=== PATIENT | female | born 1985 | race Caucasian/White ===

== ENCOUNTER 2017-10-07 05:12 | Inpatient (IN) | payer OTHER ==
[~2017-10-07] VITALS: Ht 167.6 cm; Wt 90.5 kg
[~2017-10-07 05:12] MED LIST: MTR600X PO
[2017-10-07] MEDS ORDERED: LACTATED RINGER'S 1000ML 1,000 ML IV PRN (06:29)
[2017-10-07] MEDS ORDERED: LACTATED RINGER'S 1000ML 1,000 ML IV SCH ×2 (06:29→17:00)
[2017-10-07] MEDS ORDERED: PENICILLIN G POTASSIUM IV 6 MU in DEXTROSE 5% 250ML 250 ML IV ONE (06:30)
[2017-10-07 06:45] VITALS: Ht 167.6 cm; Wt 90.5 kg
[2017-10-07 07:13] LABS: HEMATOCRIT 33.5 % (37-47); MEAN CELL VOLUME 94.9 fL (80-100); MEAN CORPUSCULAR HEMOGLOBIN 31.2 pg (25-34); MEAN CORPUSCULAR HGB CONC 32.8 g/dl (32-36); MEAN PLATELET VOLUME 10.3 fL (7.4-10.4); PLATELET COUNT 155 K/uL (130-400); RED CELL DISTRIBUTION WIDTH CV 13.4 % (11.5-14.5); RED CELL DISTRIBUTION WIDTH SD 46.2 fL (36.4-46.3); WHITE BLOOD COUNT 10.14 K/uL (4.8-10.8)
[2017-10-07] MEDS ORDERED: PRENTAB26 PO (08:35)
[2017-10-07] MEDS: PENICILLIN G POTASSIUM IV 3 MU in DEXTROSE 5% 100ML 100 ML IV PRN ×2 (11:14→15:15)
[2017-10-07] MEDS ORDERED: BUPIVACAINE 0.25% 30 ML VIAL ONE (12:01)
[2017-10-07] MEDS ORDERED: FENTANYL 2MCG/ML ROPIV 1.25MG/ML 100ML BAG EPI ONE (12:01)
[2017-10-07] MEDS ORDERED: EpHEDrine SULFATE INJ 50 MG/ML AMP ONE (12:01)
[2017-10-07] MEDS ORDERED: FENTANYL CITRATE INJ 50 MCG/1 ML 2 ML VIAL ONE (12:03)
[2017-10-07] MEDS ORDERED: EpHEDrine SULFATE INJ 50 MG/ML AMP IV PRN (12:45)
[2017-10-07] MEDS ORDERED: NALOXONE HCL INJ 0.4 MG/1 ML VIAL/CARP IV PRN (12:45)
[2017-10-07] MEDS ORDERED: NALOXONE HCL INJ 1 MG in SODIUM CHLORIDE 0.9% 1000ML 1,000 ML IV PRN (12:45)
[2017-10-07] MEDS ORDERED: LACTATED RINGER'S 1000ML 500 ML IV PRN (12:45)
[2017-10-07] MEDS ORDERED: DiphenhydrAMINE HCL 50 MG/ML VIAL IV PRN (12:45)
[2017-10-07] MEDS ORDERED: NALBUPHINE HCL INJ 10 MG/ML 1ML AMP IV PRN (12:45)
[2017-10-07] MEDS ORDERED: FENTANYL 2MCG/ML ROPIV 1.25MG/ML 100ML BAG EPI PRN (12:45)
[2017-10-07] MEDS ORDERED: ONDANSETRON INJ 2 MG/ML 2 ML VIAL IV PRN (12:45)
[2017-10-07] MEDS ORDERED: OXYTOCIN 30 UNITS/500ML NSS IV ONE (15:54)
--- NOTE | 2017-10-07 16:40 | Anesthesia Procedure Note ---
Anesthesia Epidural Removal Nt Date & Time Oct 07, 2017 at 16:39 Vital Signs Pain Intensity: 0.0 Notes Mental Status: alert / awake / arousable, participated in evaluation Nausea / Vomiting: adequately controlled Pain: adequately controlled Airway Patency, RR, SpO2: stable & adequate BP & HR: stable & adequate Hydration State: stable & adequate Neuraxial Anesthesia: was administered Anesthetic Complications: no major complications apparent, pt satisfied with anesthetic care Epidural: removed without complications, with tip intact
[2017-10-07] MEDS ORDERED: OXYTOCIN 30 UNITS/500ML NSS IV PRN (16:45)
[2017-10-07] MEDS ORDERED: OXYCODONE/ACETAMINOPHEN 5-325 TAB PO PRN (16:45)
[2017-10-07] MEDS ORDERED: HYDROCORTISONE ACETATE 25 MG SUPP PR PRN (16:45)
[2017-10-07] MEDS ORDERED: ACETAMINOPHEN 325 MG TAB PO PRN (16:45)
[2017-10-07] MEDS ORDERED: SUPERCREAM 0.870 % 15GM JAR EXT PRN (16:45)
[2017-10-07] MEDS ORDERED: DIPHTHERIA/TETANUS/PERTUSSIS 0.5 ML SYR/VIAL IM. ONE (16:45)
[2017-10-07] MEDS ORDERED: MEASLES, MUMPS & RUBELLA VIRUS VIAL SQ. ONE (16:45)
[2017-10-07] MEDS ORDERED: LANOLIN OINT EXT PRN (16:45)
[2017-10-07] MEDS: IBUPROFEN 600 MG TAB PO PRN (19:20)
[2017-10-07] MEDS: BENZOCAINE 20% AER SPR 82.5 GM CAN EXT PRN (19:20)
[2017-10-07 19:50] VITALS: BP_SYST 108; BP_SYST 119; BP_DIAS 67; BP_DIAS 74; PULSE 66; PULSE 76; TEMP 36.6; TEMP 36.8; O2SAT 97
--- NOTE | 2017-10-07 20:13 | DELIVERY SUMMARY ---
DATE OF OPERATION: 10/07/2017 TIME OF DELIVERY OF BABY: 16:06 p.m. TIME OF DELIVERY OF PLACENTA: 16:26 p.m. DETAILS OF DELIVERY: The patient was presented to L&D on the morning on 10/07 with contractions and admitted for labor. 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 AROM was done at 1146 am with clear fluid. She was found to be fully dilated and desired to push. She pushed through 3 contractions and delivered the head without difficulty. After the delivery of the head, turtle sign was noted. The anterior, right, shoulder was found to be stuck behind the pubic bone. The nursing tea was noted. The bed of the patient was lowered all the way down. Her legs were hyperflexed with McRobert's maneuver and suprapubic pressure was applied by her nurse. With those maneuvers, the shoulders were delivered with minimal traction. There was a 40 second time from the delivery of the head till whole body. Baby was handed of to the mother, mouth and nose were suctioned. Cord was clamped x2 and cut. Baby was handed off the nursery team. The cord blood was obtained. It was a 3-vessel cord. Then the Vagina and perineum were checked for lacerations. There was a perineal partial third degree laceration which was confirmed with rectal exam. A partial sphincter tone was noted. External fibers of external anal sphincter was involved. With the Allis clamps, the external fibers of the sphincter muscles were grasped , brought to the midline. Three [id number]-[id number] stitches with 2/0 Vicryl were placed to repair the sphincter with end-to-end fashion x3. Rectal exam was repeated and good sphincter tone was noted. No sutures were felt, gloves were changed. With another 2/0 Vicryl vaginal mucosa and perineal body muscles and bulbocavernosus muscles were brought together with a 2-0 Vicryl in a running fashion, skin in a subcuticular fashion. Rectal exam was repeated. No sutures felt and excellent sphincter tone was noted. Gloves were changed. Rest of the vagina and perineum were checked and they were found to be intact. Placenta was found to be in the vagina, delivered spontaneously intact and complete. The uterus was explored and found to be empty. The lower segment was cleared off all clots and debris. Fundus was firm. EBL was 200. Mom and baby tolerated the procedure well. Sponge, needle and instrument counts were correct x2. Baby was a viable female . Apgars 8/9, weight was 4010 gr. She received 3 doses of IV penicillin during labor. No complications happened and I was present during whole procedure. I attest to the content of the Intraoperative Record and any orders documented therein. Any exceptions are noted below. MTDD
[2017-10-07] MEDS: DOCUSATE SODIUM 100 MG CAP PO SCH (21:15)
[2017-10-07] MEDS: MAGNESIUM HYDROXIDE SUSP 30 ML UDC PO SCH (22:00)
[2017-10-07 23:31] VITALS: BP 107/70; PULSE 62; TEMP 36.7
[2017-10-08] MEDS: IBUPROFEN 600 MG TAB PO PRN ×3 (01:52→23:49)
[2017-10-08 04:05] VITALS: BP 108/73; PULSE 57; TEMP 36.4
[2017-10-08 07:29] LABS: HEMATOCRIT 33.9 % (37-47); HEMOGLOBIN 11.3 g/dL (12.0-16.0)
[2017-10-08 07:55] VITALS: BP 110/75; PULSE 66; TEMP 36.8; O2SAT 98
[2017-10-08] MEDS: FERROUS SULFATE 325 MG TAB PO SCH (08:00)
[2017-10-08] MEDS: PRENATAL VITAMIN TAB PO SCH (08:00)
[2017-10-08] MEDS: DOCUSATE SODIUM 100 MG CAP PO SCH ×2 (08:49→19:20)
--- NOTE | 2017-10-08 10:29 | OB/GYN Progress Note ---
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 Subjective conversation w/ patient, physical exam Ambulation: ambulating normally Voiding: no voiding problems Passing Gas: Yes Diet Tolerance: Regular Diet Lochia: Moderate Feeding Type: Breast Feeding Review of Systems Constitutional: No fever, No chills, No sweats, No weight loss, No weakness, No fatigue, No problem reported Respiratory: No cough, No sputum, No wheezing, No shortness of breath, No dyspnea on exertion, No dyspnea at rest, No hemoptysis, No problem reported Cardiac: No chest pain, No orthopnea, No PND, No edema, No claudication, No palpitations, No problem reported Breast: No see HPI, No breast lump, No change in shape, No nipple discharge, No breast pain, No problem reported Abdomen: No pain, No nausea, No vomiting, No diarrhea, No constipation, No GI bleeding, No problem reported Female : No see HPI, No dysuria, No urinary frequency, No hematuria, No incontinence, No abnormal vaginal bleeding, No vaginal discharge, No problem reported Objective Vital Signs Date Time Temp Pulse Resp B/P (MAP) Pulse Ox O2 Delivery O2 Flow Rate FiO2 10/08/17 07:55 36.8 66 18 110/75 (87) 98 Room Air 10/08/17 07:55 98 Room Air 10/08/17 04:05 36.4 57 18 108/73 (85) Room Air 10/07/17 23:33 Room Air 10/07/17 23:31 36.7 62 18 107/70 (82) Room Air 10/07/17 19:50 36.6 66 18 108/67 10/07/17 19:50 36.8 76 18 119/74 (89) 97 Room Air 10/07/17 19:50 Room Air Physical Exam General Appearance: WELL-APPEARING, WD/WN, NO APPARENT DISTRESS Respiratory/Chest: chest non-tender, lungs clear, normal breath sounds Cardiovascular: regular rate, rhythm, no edema, no gallop Abdomen: normal bowel sounds, non tender, soft Fundus: Firm Extremities: normal range of motion, non-tender, normal inspection Laboratory Results Last 24 Hours Test 10/08/17 06:55 Hemoglobin 11.3 g/dL Hematocrit 33.9 % Assessment and Plan Day Number: 1 Continue Routine Care: VD day #1 pt doing well no complaints anticipate disch tomorrow
[2017-10-08 11:40] VITALS: BP 103/68; PULSE 64; TEMP 36.3; O2SAT 99
[2017-10-08 16:30] VITALS: BP 111/73; PULSE 68; TEMP 36.5; O2SAT 98
--- NOTE | 2017-10-08 18:20 | NUR ---
Entered room at 1745 to discuss offer assistance with breast feeding and introduce self to parents. This mom states she breast fed successfully in the past and this is not her first child, however she notices her girl is "nipple sucking" and will call for the next feed for assistance with latch. Mother described some sore nipples and stated using lanolin. Offered the suggestion of saline compresses, dry, then apply lanolin for nipple soreness intervention. Mother verbalized understanding. Miranda Hooper RN, CLC
[2017-10-08] MEDS: MAGNESIUM HYDROXIDE SUSP 30 ML UDC PO SCH (19:22)
[2017-10-08 19:50] VITALS: BP 109/70; PULSE 69; TEMP 36.4; O2SAT 98
[2017-10-08] MEDS ORDERED: BISACODYL 5 MG TABEC PO SCH (20:00)
[2017-10-08] MEDS: BENZOCAINE 20% AER SPR 82.5 GM CAN EXT PRN (23:49)
[2017-10-09 00:30] VITALS: BP 111/70; PULSE 66; TEMP 36.7
--- NOTE | 2017-10-09 06:51 | OB/GYN Progress Note ---
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 Subjective conversation w/ patient, physical exam Ambulation: ambulating normally Voiding: no voiding problems Passing Gas: Yes Diet Tolerance: Regular Diet Lochia: Moderate Feeding Type: Breast Feeding Review of Systems Constitutional: No fever, No chills, No sweats, No weight loss, No weakness, No fatigue, No problem reported Respiratory: No cough, No sputum, No wheezing, No shortness of breath, No dyspnea on exertion, No dyspnea at rest, No hemoptysis, No problem reported Cardiac: No chest pain, No orthopnea, No PND, No edema, No claudication, No palpitations, No problem reported Breast: No see HPI, No breast lump, No change in shape, No nipple discharge, No breast pain, No problem reported Abdomen: No pain, No nausea, No vomiting, No diarrhea, No constipation, No GI bleeding, No problem reported Female : No see HPI, No dysuria, No urinary frequency, No hematuria, No incontinence, No abnormal vaginal bleeding, No vaginal discharge, No problem reported Objective Vital Signs Date Time Temp Pulse Resp B/P (MAP) Pulse Ox O2 Delivery O2 Flow Rate FiO2 10/09/17 00:30 36.7 66 18 111/70 (84) Room Air 10/09/17 00:30 Room Air 10/08/17 19:50 36.4 69 16 109/70 (83) 98 Room Air 10/08/17 16:30 36.5 68 18 111/73 (86) 98 Room Air 10/08/17 16:30 98 Room Air 10/08/17 11:40 36.3 64 18 103/68 (80) 99 Room Air 10/08/17 07:55 36.8 66 18 110/75 (87) 98 Room Air 10/08/17 07:55 98 Room Air Physical Exam General Appearance: WELL-APPEARING, WD/WN, NO APPARENT DISTRESS Respiratory/Chest: chest non-tender, lungs clear, normal breath sounds Cardiovascular: regular rate, rhythm, no edema, no gallop Abdomen: normal bowel sounds, non tender, soft Fundus: Firm Extremities: normal range of motion, non-tender, normal inspection Laboratory Results Last 24 Hours Test 10/08/17 06:55 10/09/17 04:44 Hemoglobin 11.3 g/dL Hematocrit 33.9 % Assessment and Plan Day Number: 1 Continue Routine Care: PPD #2 pt doing well disch home with instructions
[2017-10-09] MEDS ORDERED: MTR600X PO (06:53)
[2017-10-09] MEDS ORDERED: FRRS300 PO (06:53)
--- NOTE | 2017-10-09 06:54 | Discharge Instructions ---
Discharge Instructions Date of Service Oct 09, 2017. Admission Reason for Admission: Active Labor At Term Discharge Discharge Diagnosis / Problem: Discharge Goals Goal(s): Routine recovery after delivery Activity Recommendations Activity Limitations: as noted below ACTIVITY RECOMMENDATIONS: * Gradual return to full activity over the next 2-3 weeks. * No lifting - nothing heavier than baby over the next 2-3 weeks. * Do not engage in vigorous exercise, sexual activity or sports until cleared by your physician. * Do not drive or operate any motorized equipment until cleared by your physician. * You may shower/bathe daily. BREAST CARE: If you are not breast feeding: * Wear a supportive bra 24 hours a day for one to two weeks. * Avoid stimulating your breasts and nipples as much as possible during the first few weeks after delivery. * When taking a shower, have the warm water hit your back, not breasts. * When your breasts feel full, apply ice packs. Usually three to four times a day helps ease the discomfort. * Take a mild pain medication (Tylenol/Motrin) when you are uncomfortable. If breast feeding: * Use breast milk to lubricate nipples. Lansinoh cream may be used for sore nipples. You do not need to remove cream prior to breast feeding. If using a different brand of cream, check the label for directions regarding removal of cream prior to nursing. * Wear a supportive bra. * If having problems with breasts or breast feeding, call a ruby on rails consultant or your health care provider. EPISIOTOMY CARE: After delivery, if you have an episiotomy (stitches), the following steps will ease discomfort and aid healing. * For the first 24 hours after delivery, place ice packs next to your episiotomy to help reduce swelling. * After the first 24 hour-period, sitz baths, either portable or in the tub, are suggested. A shower with a shower arm sprayed over the episiotomy may be comforting. * Kaya care should be done after each voiding and bowel movement. Squirt warm water from a plastic bottle over the perineum (region of the body between the anus and urinary opening) and pat dry. * Use Dermoplast to ease discomfort. Shake container. [place] directly over the episiotomy. * Place a Tucks on a clean sanitary pad next to your episiotomy. OVER THE COUNTER MEDICATION: * For discomfort or pain, you may use Acetaminophen (Tylenol), Ibuprofen (Advil ), or Naproxen (Aleve) following the package directions. * For constipation you may use Colace following the package directions. SPECIAL CARE INSTRUCTIONS: When you are discharged from the hospital, it is important for you to follow the instructions listed below: * During the first week at home, you should be able to care for yourself and your baby. In addition, the usual light household activities are encouraged. * Limit your activities to the way you feel. Do not try to clean the house or move furniture. Be sensible. * If you actively engage in sports and have done so up until the time of your delivery, you may resume these activities as soon as you feel able. This may take up to one month or even longer. Use good judgment. * Continue to take your vitamins for at least six weeks after the of your baby. * Your diet need not be limited unless you were on a special diet before your delivery. Breast-feeding mothers need around 2500 calories per day and at least 64-80 ounces of fluid per day (8 to 10 glasses). * You should eat foods from the four major food groups. Crash diets or fad diets are to be avoided. Eating lean meats, fresh fruits and vegetables, low-fat dairy products, high fiber foods and a regular exercise program, will help you get back to your pre- weight without putting your health at risk. * Constipation is sometimes a problem after delivery. Take a mild laxative as needed. If breast feeding, Milk of Magnesia is acceptable to use. You may use a suppository or Fleets enema if no episiotomy. * A daily shower or tub bath is suggested. Be sure to thoroughly and gently dry the perineum. * A bloody vaginal discharge will usually continue until around four weeks post . A small amount of bleeding may continue for as long as six weeks. Vaginal discharge changes from the bright red bleeding after delivery to pink then brownish and finally yellowish-pink before becoming white and disappearing. * Bleeding may increase with activity. Your first period may come in 4-8 weeks. If you are breast feeding, your period may be delayed even longer. * Jet (sex) can begin whenever both you and your partner feel comfortable and do not have any form of genital infection. It is recommended that you wait until after your return appointment and discuss with your physician. If you have questions, please talk to your health care practitioner. A condom should be used to prevent infection and . * Foreplay, gentle intercourse and lubrication is very important the first several times to prevent pain. A water-based lubricant such as K-Y jelly or Astroglide may be used. * Tampons may be used six weeks after delivery. * Douching should be avoided for 6 weeks after delivery. * If you have RH negative blood and your baby is RH positive, you will receive RHOGAM by injection prior to discharge. The nurse will give you a card to keep with you that has the date and place that you received RHOGAM after delivery. * During your care, you had a Rubella screen done to check for the presence of rubella antibodies in your blood. If your test was negative, you will receive a Rubella vaccine prior to discharge. This vaccine may cause a fever, soreness at the injection site and flu-like symptoms. If these symptoms persist, notify your health care practitioner. is not advised for three months after a Rubella vaccine. There is a higher chance of having a baby with defects if conceived within three months of getting the vaccine. * If you were discharged 24 hours from delivery or before 48 hours: Visiting nurses will come to your home 48 hours after discharge to assess you and your baby. The visiting nurse will meet with you while you are in the hospital to arrange a time and get directions to your home. * Verbalizes understanding of car seat law as reviewed with patient nursing. * Car Seat hand-out given and reviewed with patient by nursing. * Shaken baby information reviewed with patient by nursing. Call you doctor if: * Heavy bleeding (saturating several pads an hour) or passing clots the size of your fist. * A fever >101 degrees F (38.3 degrees C) on two occasions four hours apart and/or chills. * Unusual pain in the pelvic or vaginal areas. * "Baby Blues" lasting longer than two weeks. If you have any questions or concerns, call your health care practitioner at . FOLLOW-UP VISIT: * Please call the office at to schedule a 6 week examination. It is important you keep this appointment. * It is important for you to make arrangements for either yearly or twice yearly check-ups thereafter. . Current Hospital Diet Patient's current hospital diet: Regular OB Diet Discharge Diet Recommended Diet: Regular Diet Pending Studies Studies pending at discharge: no Medical Emergencies . Who to Call and When: Medical Emergencies: If at any time you feel your situation is an emergency, please call 911 immediately. . Non-Emergent Contact Non-Emergency issues call your: Specialist . . "Provider Documentation" section prepared by Tae White. . VTE Core Measure Inpt VTE Proph given/why not?: Treatment not indicated
[2017-10-09] MEDS ORDERED: BISACODYL 10 MG SUPP PR PRN (07:00)
[2017-10-09 07:25] VITALS: BP 122/81; PULSE 68; TEMP 36.3; O2SAT 98
[2017-10-09 07:40] LABS: HEMATOCRIT 34.8 % (37-47); HEMOGLOBIN 11.4 g/dL (12.0-16.0); MEAN CELL VOLUME 95.6 fL (80-100); MEAN CORPUSCULAR HEMOGLOBIN 31.3 pg (25-34); MEAN CORPUSCULAR HGB CONC 32.8 g/dl (32-36); MEAN PLATELET VOLUME 10.4 fL (7.4-10.4); PLATELET COUNT 174 K/uL (130-400); RED CELL DISTRIBUTION WIDTH CV 13.2 % (11.5-14.5); RED CELL DISTRIBUTION WIDTH SD 46.1 fL (36.4-46.3); WHITE BLOOD COUNT 12.03 K/uL (4.8-10.8)
[2017-10-09] MEDS: PRENATAL VITAMIN TAB PO SCH (08:00)
[2017-10-09] MEDS: DOCUSATE SODIUM 100 MG CAP PO SCH (08:47)
[2017-10-09] MEDS: FERROUS SULFATE 325 MG TAB PO SCH (08:47)
[2017-10-09 13:15] VITALS: BP_DIAS 81; PULSE 68; TEMP 36.3
--- NOTE | 2017-10-09 14:10 | NUR ---
Verbalized understanding of discharge instructions. Down to lobby in wheelchair with volunteer, and .
== END 2017-10-09 14:10 | disposition home or self-care (01) | DRG 775 ==
LOC: C.OPB 05:12 → C.LD 05:16 → C.OPB 06:46 → C.OBG 19:48
PROVIDERS: ADMIT Obstetrics & Gynecology; ATTEND Obstetrics & Gynecology
PROC: 10E0XZZ Delivery of Products of Conception, External Approach (ICD-10-PCS; principal; 2017-10-07)
PROC: 0DQR0ZZ Repair Anal Sphincter, Open Approach (ICD-10-PCS; principal; 2017-10-07)
DX: O70.20 Third degree perineal laceration during delivery, unspecified (principal); O66.0 Obstructed labor due to shoulder dystocia; Z37.0 Single live birth; Z3A.39 39 weeks gestation of pregnancy; O99.824 Streptococcus B carrier state complicating childbirth; O09.13 Supervision of pregnancy with history of ectopic pregnancy, third trimester; O26.23 Pregnancy care for patient with recurrent pregnancy loss, third trimester

== ENCOUNTER 2017-10-16 03:30 | Emergency (ER) | payer OTHER ==
[~2017-10-16] VITALS: Ht 167.6 cm; Wt 79.5 kg
[~2017-10-16 03:30] MED LIST changes: +FRRS300 PO; +PRENTAB26 PO
[2017-10-16 03:35] VITALS: TEMP 36.8
[2017-10-16] MEDS ORDERED: SODIUM CHLORIDE 0.9% 1000ML 1,000 ML IV STA (03:42)
[2017-10-16 04:22] LABS: BASO % 0.6 %; BASO ABS # 0.05 K/uL (0-0.2); EOS % 3.5 %; EOS ABS # 0.29 K/uL (0-0.5); HEMATOCRIT 40.2 % (37-47); IG# 0.05 K/uL (0.00-0.02); LYMPH ABS # 1.32 K/uL (1.2-3.4); MEAN CELL VOLUME 95.3 fL (80-100); MEAN CORPUSCULAR HEMOGLOBIN 30.8 pg (25-34); MEAN CORPUSCULAR HGB CONC 32.3 g/dl (32-36); MEAN PLATELET VOLUME 9.1 fL (7.4-10.4); MONO % 9.7 %; NEUT % 69.6 %; NEUT ABS # 5.74 K/uL (1.4-6.5); PLATELET COUNT 271 K/uL (130-400); RED CELL DISTRIBUTION WIDTH CV 13.1 % (11.5-14.5); RED CELL DISTRIBUTION WIDTH SD 45.3 fL (36.4-46.3); WHITE BLOOD COUNT 8.25 K/uL (4.8-10.8)
[2017-10-16 04:32] VITALS: Ht 167.6 cm; Wt 79.5 kg
[2017-10-16 04:33] VITALS: O2SAT 100
[2017-10-16 04:43] LABS: ALBUMIN 3.1 gm/dl (3.4-5.0); CALCIUM 8.6 mg/dl (8.5-10.1); CREATININE 0.89 mg/dl (0.60-1.20); POTASSIUM 3.9 mmol/L (3.5-5.1)
[2017-10-16 04:45] LABS: TOTAL PROTEIN 7.1 gm/dl (6.4-8.2)
--- NOTE | 2017-10-16 06:14 | EMERGENCY ROOM VISIT NOTE ---
History First contact with patient: 03:38 Chief Complaint: VAGINAL BLEEDING Stated Complaint: BLEEDING History of Present Illness The patient is a 32 year old female who presents to the Emergency Room with complaints of vaginal spotting since delivery 1 week ago with increased bleeding in the past 24-hour hours. Patient called the on-call OB and was advised to go the ER if the bleeding got worse. It did and that prompted her to come here. Patient states no change in pelvic discomfort since the vaginal delivery who had vaginal tearing that was repaired by sutures. Patient states she feels as if she is pouring out blood. Patient denies chest pain, dyspnea, fever, chills, leg numbness, dizziness, weakness. She is tolerating by mouth fluids and food. She is breast-feeding. This is her third and third living child. Review of Systems See HPI for pertinent positives & negatives. A total of 10 systems reviewed and were otherwise negative. Past Medical/Surgical History Medical Problems: (1) Active labor at term (2) Ectopic (3) Ectopic without intrauterine (4) laparoscopic ectopic repair (5) No Known Active Medical Problems (6) Ruptured ectopic (7) Ruptured ectopic (8) Vaginal bleeding in (9) Vaginal delivery Surgical Problems: (1) S/P tonsillectomy Family History Patient reports no known family medical history. Social History Smoking Status: Never Smoker Alcohol Use: none Drug Use: none Marital Status: Housing Status: lives with family Occupation Status: employed Current/Historical Medications No Active Prescriptions or Reported Meds Physical Exam Vital Signs Date Time Temp Pulse Resp B/P (MAP) Pulse Ox O2 Delivery O2 Flow Rate FiO2 10/16/17 05:19 65 18 105/72 99 Room Air 10/16/17 04:33 69 18 99/70 100 Room Air 10/16/17 04:33 100 Room Air 10/16/17 03:35 36.8 96 20 118/90 99 Room Air Physical Exam VITALS: Vitals are noted on the nurse's note and reviewed by myself. Vital signs stable. GENERAL: Pleasant female, in no acute distress, nondiaphoretic, well-developed well-nourished. SKIN: Capillary reflex less than 2 seconds. HEENT: Normocephalic. PERRLA. EOMI. Nares patent. Mucous membranes moist. Neck is supple without nuchal rigidity. HEART: Regular rate and rhythm without murmurs gallops or rubs. LUNGS: Clear to auscultation bilaterally without wheezes, rales or rhonchi. No retractions or accessory muscle use. ABDOMEN: Positive bowel sounds x 4. Normal tympanic percussion. Soft, nontender, without masses or organomegaly. Acevedo sign negative. No guarding or rebound tenderness. No CVA tenderness exam: Normal external female genitalia with suture lines intact. Minimal blood in the vault. Os is closed. Automotive Service Technician present MUSCULOSKELETAL: No gross musculoskeletal defects. No pedal edema. NEURO: Patient was alert and oriented to person place and time. Normal sensation to light and sharp touch. No focal neurological deficits. Medical Decision & Procedures Laboratory Results 10/16/17 04:02 Red Blood Count 4.22, Mean Corpuscular Volume 95.3, Mean Corpuscular Hemoglobin 30.8, Mean Corpuscular Hemoglobin Concent 32.3, Mean Platelet Volume 9.1, Neutrophils (%) (Auto) 69.6, Lymphocytes (%) (Auto) 16.0, Monocytes (%) (Auto) 9.7, Eosinophils (%) (Auto) 3.5, Basophils (%) (Auto) 0.6, Neutrophils # (Auto) 5.74, Lymphocytes # (Auto) 1.32, Monocytes # (Auto) 0.80, Eosinophils # (Auto) 0.29, Basophils # (Auto) 0.05 10/16/17 04:02 Test 10/16/17 04:02 White Blood Count 8.25 K/uL (4.8-10.8) Red Blood Count 4.22 M/uL (4.2-5.4) Hemoglobin 13.0 g/dL (12.0-16.0) Hematocrit 40.2 % (37-47) Mean Corpuscular Volume 95.3 fL (80-100) Mean Corpuscular Hemoglobin 30.8 pg (25-34) Mean Corpuscular Hemoglobin Concent 32.3 g/dl (32-36) Platelet Count 271 K/uL (130-400) Mean Platelet Volume 9.1 fL (7.4-10.4) Neutrophils (%) (Auto) 69.6 % Lymphocytes (%) (Auto) 16.0 % Monocytes (%) (Auto) 9.7 % Eosinophils (%) (Auto) 3.5 % Basophils (%) (Auto) 0.6 % Neutrophils # (Auto) 5.74 K/uL (1.4-6.5) Lymphocytes # (Auto) 1.32 K/uL (1.2-3.4) Monocytes # (Auto) 0.80 K/uL (0.11-0.59) Eosinophils # (Auto) 0.29 K/uL (0-0.5) Basophils # (Auto) 0.05 K/uL (0-0.2) RDW Standard Deviation 45.3 fL (36.4-46.3) RDW Coefficient of Variation 13.1 % (11.5-14.5) Immature Granulocyte % (Auto) 0.6 % Immature Granulocyte # (Auto) 0.05 K/uL (0.00-0.02) Anion Gap 3.0 mmol/L (3-11) Est Creatinine Clear Calc Drug Dose 98.3 ml/min Estimated GFR () 100.8 Estimated GFR (Non- 87.0 BUN/Creatinine Ratio 14.5 (10-20) Calcium Level 8.6 mg/dl (8.5-10.1) Total Bilirubin 0.3 mg/dl (0.2-1) Aspartate Amino Transf (AST/SGOT) 14 U/L (15-37) Alanine Aminotransferase (ALT/SGPT) 25 U/L (12-78) Alkaline Phosphatase 91 U/L (45-117) Total Protein 7.1 gm/dl (6.4-8.2) Albumin 3.1 gm/dl (3.4-5.0) Globulin 4.0 gm/dl (2.5-4.0) Albumin/Globulin Ratio 0.8 (0.9-2) Medications Administered Medications (Trade) Dose Ordered Sig/Bailey Route Start Time Stop Time Status Last Admin Dose Admin Sodium Chloride 1,000 ml @ 999 mls/hr Q1H1M STAT IV 10/16/17 03:42 10/16/17 04:42 DC 10/16/17 04:13 999 MLS/HR ED Course Prior records/ancillary studies reviewed. Triage Nursing notes reviewed. Additional history obtained from the family. The patient's history was concerning for vaginal bleeding and 1 week Differential diagnosis: Etiologies such as retained products of conception, endometritis, post delivery bleeding, dysfunction uterine bleeding, bleeding dyscrasia, trauma, infection, as well as others were entertained. Physical examination: As above. Vitals signs revealed stable. ER treatment provided: IV fluids On reassessment the patient felt better. Diagnostic interpretation by me: The labs revealed the patient to the CBC and chemistries were unremarkable. Imaging studies: Ultrasound as above US PELVIS: No priors Enlarged uterus. Endometrium appears heterogenous. No measurements of endometrial thickness provided but likely prominent. There appears to be some intrauterine air with associated artifact. Correlate for endometritis. RPOC is not excluded. Right ovary is visualized and appears unremarkable with blood flow. The left ovary is not seen. Radiologist: Smooth Hairston M.D. Consultation: A consultation was placed with the brakeshoe repairer physician, Dr. Vivas. The case was discussed and diagnostics were reviewed. He recommends discharge and close outpatient follow-up. This appears to be consistent with vaginal bleeding most likely from recent vaginal delivery. Patient had no signs of endometritis. Stable H&H. She was not hemorrhaging. There is minimal blood in the vault. She is advised light activity and take Tylenol for the pain and follow-up with OB in a few days or here in the ER sooner for heavy bleeding, fevers, vomiting, pain, worsening signs or symptoms or as needed. By the evaluation outlined above emergent etiologies such as bleeding dyscrasia, ectopic , trauma, as well as others were deemed relatively unlikely. The pt informed about the findings as listed above. All questions were answered and pleased with the treatment. Return instructions were outlined and the patient was discharged in stable condition. Referral: The patient was referred to [facility] for follow-up in 2 to 3 days for a recheck of her current condition. Case reviewed with my attending. Medical Decision As above Medication Reconcilliation Current Medication List: was personally reviewed by me Blood Pressure Screening Patient's blood pressure: Normal blood pressure Impression Primary Impression: Abnormal vaginal bleeding Departure Information Dispostion Home / Self-Care Condition GOOD Prescriptions No Active Prescriptions or Reported Meds Referrals Km Caputo M.D. (PCP) Patient Instructions My [facility] Additional Instructions Rest. Stay well hydrated. No strenuous activity or intercourse until cleared by [facility]. Zofran 4 tablet every 6 hours as needed for nausea and vomiting. Acetaminophen(Tylenol) may be used for fever or pain. Use 1000mg every six hours as needed. Avoid using more than 3000mg in a 24 hour period. Rest and drink plenty of fluids as tolerated. Continue current medications. Return to the ER immediately for worsening or persistent heavy vaginal bleeding , abdominal pain, vomiting, fevers, chest pains, difficulty breathing, worsening of your condition, or as needed. Follow up with your [facility] in 2-3 days for a recheck of your current condition.
[2017-10-16] MEDS ORDERED: ONDANSETRON HOME PACK 4MG OD TAB PO ONE (06:15)
[2017-10-16 06:38] VITALS: BP 94/71; PULSE 65; O2SAT 97
--- NOTE | 2017-10-16 08:56 | DIAGNOSTIC IMAGING REPORT ---
PELVIC ULTRASOUND CLINICAL HISTORY: 1 week , heavy bleeding. COMPARISON STUDY: Pelvic ultrasound September 17, 2013. TECHNIQUE: Transabdominal and transvaginal sonography of the pelvis was performed. FINDINGS: The uterus measures 11.9 x 8.4 x 11.3 cm. The endometrium measures 3.9 cm in thickness. The endometrium is heterogeneous. Echogenic foci within the endometrium may reflect gas. No increased vascularity within the endometrium is noted. The left ovary was not visualized. The right ovary is sonographically normal. There is no free fluid. IMPRESSION: Thickened heterogeneous endometrium, measuring 3.9 cm in thickness, with suspected gas within the uterine canal. No increased vascularity. These findings are likely related to recent vaginal delivery however retained products of conception could have this appearance. Electronically signed by: Chi Dias M.D. 10/16/2017 8:54 AM Dictated Date/Time: 10/16/2017 8:51 AM
== END 2017-10-16 06:38 | disposition home or self-care (01) ==
LOC: C.EDB 03:32 → C.EDA 06:38
DX: N93.9 Abnormal uterine and vaginal bleeding, unspecified (principal); Z98.890 Other specified postprocedural states